=== PATIENT | male | born 1985 | race Caucasian/White ===

== ENCOUNTER 2024-02-07 13:12 | Emergency (ER) | payer OTHER ==
--- NOTE | 2024-02-07 14:28 | ERPHSYRPT ---
- History of Present Illness Time Seen by Provider: 02/07/24 14:15 Historian: patient, family (mother) Exam Limitations: no limitations Patient Subjective Stated Complaint: C/O vomiting that started approx 30 minutes prior to patient coming into the ER. Denies pain. Triage Nursing Assessment: Patient brought back to ER in a W/C. He is alert and oriented but anxious and hyperventilating. AQUINO WNL. Diaphoretic. Patient retching a few times during assessment with no vomitus; "dry heaving". Patient told to slow his breathing. Physician History: Pt states about 105 minutes ago he started with nausea & vomiting 6 times; about 20 minutes ago pt developed generalized abdominal cramping about 7/10 in severity. LBM was early this morning & wnl. Pt denies chest pain and shortness of air. Allergies/Adverse Reactions: No Known Drug Allergies Allergy (Verified 02/07/24 13:22) Home Medications: Amoxicillin/Potassium Clav [Amox-Clav 875-125 mg Tablet] 1 tab PO BID 02/07/24 [History] Ferrous Sulfate 325 mg [Feosol 325 mg] 325 mg PO DAILY 02/07/24 [History] Omeprazole 20 mg PO DAILY 02/07/24 [History] Hx Tetanus, Diphtheria Vaccination/Date Given: Yes Immunizations Up to Date: Yes Travel Risk - International Travel Have you traveled outside of the country in past 3 weeks: No - Emerging Infectious Disease Are you exhibiting symptoms associated with any current EIDs: Yes Symptoms: Vomitting - Review of Systems Respiratory: No Dyspnea Cardiac: No Chest Pain Abdominal/Gastrointestinal: Abdominal Pain, Nausea, Vomiting, No Diarrhea Neurological: No Headache - Past Medical History Pertinent Past Medical History: Yes Cardiac History: Hypertension Musculoskeletal History: Other GI Medical History: GERD, Hernia, Polyps Other Medical History: Raynauds, Anemia - Past Surgical History Past Surgical History: Yes Other Surgical History: carpal tunnel surgery, polyps removed - Social History Smoking Status: Never smoker Exposure to second hand smoke: No Drug Use: none - Social Determinants of Health Will the patient participate in the screening: Declined to provide - Nursing Vital Signs Nursing Vital Signs: Initial Vital Signs Temperature 98 F 02/07/24 13:25 Pulse Rate 90 02/07/24 13:25 Respiratory Rate 24 02/07/24 13:25 Blood Pressure 143/84 02/07/24 13:25 O2 Sat by Pulse Oximetry 99 02/07/24 13:25 Pain Scale Pain Intensity 0 - Physical Exam General Appearance: alert Eye Exam: eyes nml inspection Ears, Nose, Throat Exam: TMs normal, pharyngeal erythema Neck Exam: normal inspection Respiratory Exam: lungs clear, airway intact Cardiovascular Exam: normal heart sounds Gastrointestinal/Abdomen Exam: No normal bowel sounds (B.S. mildly hyperactive & normotonic) Extremity Exam: No pedal edema Neurologic Exam: alert, cooperative Skin Exam: normal color, warm SpO2 Interpretation: normal SpO2: 99 O2 Delivery: Room Air - Course Nursing assessment & vital signs reviewed: Yes - CT Exams Abdomen/Pelvis CT Interpretation: Tele-radiologist Report (Mid-abdomen mesenteric panniculitis was noted. Small sliding hiatus hernia. Umbilical hernia passing omental fat.) Ordered Tests: Active Orders 24 hr Category Date Time Status IV Insertion STAT Care 02/07/24 14:29 Active Telemetry q4h Care 02/07/24 17:46 Active ABDOMEN AND PELVIS W/0 CONTRAS [CT] Stat Exams 02/07/24 14:30 Completed AMYLASE Stat Lab 02/07/24 14:30 Completed CBC W DIFF Stat Lab 02/07/24 14:30 Completed CMP Stat Lab 02/07/24 14:30 Completed LIPASE Stat Lab 02/07/24 14:30 Completed MAGNESIUM Stat Lab 02/07/24 14:30 Completed UA W/RFX UR CULTURE Stat Lab 02/07/24 15:17 Completed Medication Summary Generic Name Dose Route Start Last Admin Trade Name Freq PRN Reason Stop Dose Admin Sodium Chloride 500 mls @ 50 mls/hr 02/07/24 18:00 02/07/24 18:07 Sodium Chloride 0.9% 500 Ml IV 03/08/24 17:59 50 mls/hr .Q10H VICTOR MANUEL Administration Discontinued Medications Generic Name Dose Route Start Last Admin Trade Name Freq PRN Reason Stop Dose Admin Sodium Chloride 1,000 mls @ 999 mls/hr 02/07/24 14:29 02/07/24 15:46 Sodium Chloride 0.9% 1000 Ml IV 02/07/24 15:29 Infused .Q1H1M STA Infusion Sodium Chloride Confirm 02/07/24 14:34 Sodium Chloride 0.9% 1000 Ml Administered 02/07/24 14:35 Dose 1,000 mls @ ud .ROUTE .STK-MED ONE Potassium Chloride 20 meq in 100 mls @ 50 mls/hr 02/07/24 17:45 02/07/24 18:07 Potassium Chloride 20 Meq In Water 100ml IV 02/07/24 19:44 50 mls/hr STAT ONE Administration Potassium Chloride Confirm 02/07/24 18:00 Potassium Chloride 20 Meq In Water 100ml Administered 02/07/24 18:01 Dose 100 mls @ ud IV .STK-MED ONE Morphine Sulfate 2 mg 02/07/24 14:29 02/07/24 14:44 Morphine Sulfate 2 Mg/Ml Inj IV 02/07/24 14:30 2 mg STAT ONE Administration Morphine Sulfate Confirm 02/07/24 14:34 Morphine Sulfate 2 Mg/Ml Inj Administered 02/07/24 14:35 Dose 2 mg .ROUTE .STK-MED ONE Morphine Sulfate 2 mg 02/07/24 17:59 Morphine Sulfate 2 Mg/Ml Inj IV 02/07/24 18:00 STAT ONE Ondansetron HCl 4 mg 02/07/24 14:29 02/07/24 14:41 Ondansetron Hcl 4 Mg/2 Ml Vial IV 02/07/24 14:30 4 mg STAT ONE Administration Ondansetron HCl Confirm 02/07/24 14:34 Ondansetron Hcl 4 Mg/2 Ml Vial Administered 02/07/24 14:35 Dose 4 mg .ROUTE .STK-MED ONE Lab/Rad Data: Laboratory Result Diagrams 02/07/24 14:30 02/07/24 14:30 Laboratory Results 02/07/24 02/07/24 02/07/24 Range/Units 15:17 15:15 15:15 WBC (4.23-9.07) x10^3/uL RBC (4.63-6.08) x10^6/uL Hgb (13.7-17.5) g/dL Hct (40.1-51.0) % MCV (79.0-92.2) fL MCH (25.7-32.2) pg MCHC (32.3-36.5) g/dL RDW (11.6-14.4) % Plt Count (163-337) x10^3/uL MPV (9.4-12.4) fL Gran % (34.0-67.9) % Immature Gran % (Auto) (0.001-0.429) % Nucleat RBC Rel Count (0.00-0.2) % Eos # (Auto) (0.04-0.54) x10^3/uL Immature Gran # (Auto) (0.001-0.031) x10^3u/L Absolute Lymphs (auto) (1.32-3.57) x10^3/uL Absolute Monos (auto) (0.30-0.82) x10^3/uL Absolute Nucleated RBC (0.00-0.012) x10^3u/L Lymphocytes % (21.8-53.1) % Monocytes % (5.3-12.2) % Eosinophils % (0.8-7.0) % Basophils % (0.2-1.2) % Absolute Granulocytes (1.78-5.38) x10^3/uL Basophils # (0.01-0.08) x10^3/uL Sodium (135-145) mmol/L Potassium (3.5-5.1) mmol/L Chloride (98-107) mmol/L Carbon Dioxide (22-30) mmol/L Anion Gap (5-15) MEQ/L BUN (9-20) mg/dL Creatinine (0.66-1.25) mg/dL Estimated GFR ML/MIN Glucose (74-106) mg/dL Calcium (8.4-10.2) mg/dL Magnesium (1.6-2.3) mg/dL Total Bilirubin (0.2-1.3) mg/dL AST (17-59) U/L ALT (0-50) U/L Alkaline Phosphatase (38-126) U/L Serum Total Protein (6.3-8.2) g/dL Albumin (3.5-5.0) g/dL Amylase (30-110) U/L Lipase (23-300) U/L Urine Color Yellow (Yellow) Urine Appearance Clear (Clear) Urine pH 8.0 (4.6-8.0) Ur Specific [place] 1.015 (1.005-1.030) Urine Protein Trace A (Negative) Urine Glucose (UA) Negative (Negative) mg/dL Urine Ketones Negative (Negative) Urine Blood Negative (Negative) Urine Nitrite Negative (Negative) Urine Bilirubin Negative (Negative) Urine Urobilinogen 0.2 (0.2) mg/dL Ur Leukocyte Esterase Negative (Negative) U Hyaline Cast (Auto) NONE SEEN (0-2) /LPF Urine Microscopic RBC 0-2 (0-5) /HPF Urine Microscopic WBC 3-5 (0-5) /HPF Ur Epithelial Cells None Seen (None Seen) /HPF Urine Bacteria None Seen (None Seen) /HPF Urine Culture Reflexed NO (NO) Influenza Type A Ag NEGATIVE (NEGATIVE) Influenza Type B Ag NEGATIVE (NEGATIVE) RSV (PCR) NEGATIVE (NEGATIVE) SARS-CoV-2 (PCR) NEGATIVE (NEGATIVE) Group A Strep Antibody NOT DETECTED (NEGATIVE) 02/07/24 02/07/24 02/07/24 Range/Units 14:30 14:30 14:30 WBC 17.2 H (4.23-9.07) x10^3/uL RBC 4.70 (4.63-6.08) x10^6/uL Hgb 13.1 L (13.7-17.5) g/dL Hct 39.9 L (40.1-51.0) % MCV 84.9 (79.0-92.2) fL MCH 27.9 (25.7-32.2) pg MCHC 32.8 (32.3-36.5) g/dL RDW 13.3 (11.6-14.4) % Plt Count 254 (163-337) x10^3/uL MPV 10.9 (9.4-12.4) fL Gran % 79.3 H (34.0-67.9) % Immature Gran % (Auto) 0.9 H (0.001-0.429) % Nucleat RBC Rel Count 0.0 (0.00-0.2) % Eos # (Auto) 0.21 (0.04-0.54) x10^3/uL Immature Gran # (Auto) 0.16 H (0.001-0.031) x10^3u/L Absolute Lymphs (auto) 2.18 (1.32-3.57) x10^3/uL Absolute Monos (auto) 0.92 H (0.30-0.82) x10^3/uL Absolute Nucleated RBC 0.00 (0.00-0.012) x10^3u/L Lymphocytes % 12.7 L (21.8-53.1) % Monocytes % 5.3 (5.3-12.2) % Eosinophils % 1.2 (0.8-7.0) % Basophils % 0.6 (0.2-1.2) % Absolute Granulocytes 13.63 H (1.78-5.38) x10^3/uL Basophils # 0.11 H (0.01-0.08) x10^3/uL Sodium 141 (135-145) mmol/L Potassium 3.0 L* (3.5-5.1) mmol/L Chloride 103 (98-107) mmol/L Carbon Dioxide 19 L (22-30) mmol/L Anion Gap 23.1 H (5-15) MEQ/L BUN 13 (9-20) mg/dL Creatinine 0.99 (0.66-1.25) mg/dL Estimated GFR 99.4 ML/MIN Glucose 163 H (74-106) mg/dL Calcium 9.5 (8.4-10.2) mg/dL Magnesium 1.7 (1.6-2.3) mg/dL Total Bilirubin 0.40 (0.2-1.3) mg/dL AST 40 (17-59) U/L ALT 42 (0-50) U/L Alkaline Phosphatase 57 (38-126) U/L Serum Total Protein 8.8 H (6.3-8.2) g/dL Albumin 5.0 (3.5-5.0) g/dL Amylase 63 (30-110) U/L Lipase 111 (23-300) U/L Urine Color (Yellow) Urine Appearance (Clear) Urine pH (4.6-8.0) Ur Specific [place] (1.005-1.030) Urine Protein (Negative) Urine Glucose (UA) (Negative) mg/dL Urine Ketones (Negative) Urine Blood (Negative) Urine Nitrite (Negative) Urine Bilirubin (Negative) Urine Urobilinogen (0.2) mg/dL Ur Leukocyte Esterase (Negative) U Hyaline Cast (Auto) (0-2) /LPF Urine Microscopic RBC (0-5) /HPF Urine Microscopic WBC (0-5) /HPF Ur Epithelial Cells (None Seen) /HPF Urine Bacteria (None Seen) /HPF Urine Culture Reflexed (NO) Influenza Type A Ag (NEGATIVE) Influenza Type B Ag (NEGATIVE) RSV (PCR) (NEGATIVE) SARS-CoV-2 (PCR) (NEGATIVE) Group A Strep Antibody (NEGATIVE) - Progress Progress: unchanged Discussed with Dr.: Other (Spoke with & discussed case with Dr. Rocha who instructed me to transfer pt to a hospital with preventive medicine officer availability. Spoke with & discussed case with Dr. Cintron([id number]) who accepted pt for transfer to [facility] as a direct admission.) Counseled pt/family regarding: lab results, diagnosis, rad results Medical Desision Making - Diagnostic Testing Diagnostic test were ordered, analyzed, and reviewed by me: Yes Radiological Interpretation: Teleradiologist Report - Departure Departure Disposition: Transfer ([facility]) Clinical Impression: Abdominal pain, Vomiting, Mesenteric panniculitis, Leukocytosis Condition: Stable Critical Care Time: No
[2024-02-07] MEDS ORDERED: Sodium Chloride 0.9% 1000 ML 1,000 ML ONE (14:34)
[2024-02-07] MEDS ORDERED: Zofran 4 MG/2 ML VIAL ONE (14:34)
[2024-02-07] MEDS ORDERED: MORPHINE SULFATE 2 MG INJ ONE (14:34)
[2024-02-07 14:36] LABS: Absolute Neutrophil Ct (ANC) 13.63 x10^3/uL (1.78-5.38); BASOPHIL % 0.6 % (0.2-1.2); Basophil (Absolute #) 0.11 x10^3/uL (0.01-0.08); Eosinophil % 1.2 % (0.8-7.0); Eosinophil (Absolute #) 0.21 x10^3/uL (0.04-0.54); Hematocrit 39.9 % (40.1-51.0); Hemoglobin 13.1 g/dL (13.7-17.5); IMMATURE GRAN # 0.16 x10^3u/L (0.001-0.031); IMMATURE GRAN % 0.9 % (0.001-0.429); Lymphocyte (Absolute #) 2.18 x10^3/uL (1.32-3.57); Lymphocytes % 12.7 % (21.8-53.1); Mean Cell Volume 84.9 fL (79.0-92.2); Mean Corpuscular Hemoglobin 27.9 pg (25.7-32.2); Mean Corpuscular Hgb Concent. 32.8 g/dL (32.3-36.5); Mean Platelet Volume 10.9 fL (9.4-12.4); Monocyte (Absolute #) 0.92 x10^3/uL (0.30-0.82); Monocytes % 5.3 % (5.3-12.2); Neutrophil % 79.3 % (34.0-67.9); Platelet Count 254 x10^3/uL (163-337); Red Cell Distribution Width 13.3 % (11.6-14.4); White Blood Count 17.2 x10^3/uL (4.23-9.07)
[2024-02-07] MEDS: Sodium Chloride 0.9% 1000 ML 1,000 ML IV STA (14:39)
[2024-02-07 14:41] LABS: ANION GAP 23.1 MEQ/L (5-15); BILIRUBIN,TOTAL 0.4 mg/dL (0.2-1.3); Calcium 9.5 mg/dL (8.4-10.2); Creatinine 1 0.99 mg/dL (0.66-1.25); EST GLOMERULAR FILTRATION RATE 99.4 ML/MIN; Total Protein 8.8 g/dL (6.3-8.2)
[2024-02-07] MEDS: Zofran 4 MG/2 ML VIAL IV ONE (14:41)
[2024-02-07] MEDS: MORPHINE SULFATE 2 MG INJ IV ONE (14:44)
[2024-02-07 15:28] LABS: Appearance Clear (Clear); Bacteria None Seen /HPF (None Seen); Bilirubin Negative (Negative); Blood Negative (Negative); Epithelial Cells None Seen /HPF (None Seen); Glucose, Urine Negative (Negative); Hyaline Casts NONE SEEN /LPF (0-2); Ketones Negative (Negative); Leukocyte Esterase Negative (Negative); Nitrite Negative (Negative); Protein,Urine Dip Trace (Negative); RBC 0-2 /HPF (0-5); Specific Gravity 1.015 (1.005-1.030); Urobilinogen 0.2 mg/dL (0.2)
[2024-02-07 16:00] LABS: INFLUENZA A NEGATIVE (NEGATIVE); INFLUENZA B NEGATIVE (NEGATIVE); RESPIRATORY SYNCTIAL VIRUS NEGATIVE (NEGATIVE); SARS-CoV-2 Xpert Express NEGATIVE (NEGATIVE)
--- NOTE | 2024-02-07 16:44 | XRAY ---
CLINICAL HISTORY: pain/vomiting COMPARISON: No prior studies are available for comparison. TECHNIQUE: Non-contrast CT of the abdomen and pelvis was performed, with the following protocol: axial images, and reconstructed coronal and sagittal images. One of the following dose reduction techniques was utilized for this exam: Automated exposure control, adjustment of the mA and/or kV according to patient size, and use of iterative reconstruction. FINDINGS: Lower lung cuts: Bilateral posterior basal pulmonary calcified nodule. Small sliding hiatal significant. Abdomen: Liver: Normal in size, shape, and density. No focal lesions, cysts, or masses were identified. Gallbladder and Biliary System: The gallbladder is normal in size and shape. No wall thickening, pericholecystic fluid, or gallstones were identified. Pancreas: Pancreatic head, body, and tail are visualized and appear normal in size and density. No pancreatic masses or calcifications were noted. Spleen: Normal in size, shape, and density. No splenic lesions or masses were identified. Kidneys and Adrenal Glands: Both kidneys are normal in size, shape, and position. Cortical thickness is within normal limits. No renal calculi or hydronephrosis. Adrenal glands are unremarkable. Abdominal Aorta and Vessels: The abdominal aorta and major branches are patent without evidence of an aneurysm or significant atherosclerosis. Pelvis: Urinary Bladder: Normal in contour and wall thickness. No intraluminal lesions. Prostate: Normal in size and contour. No masses or abnormal thickening. Seminal Vesicles: Normal appearance without abnormal enlargement or mass. Peritoneal and Retroperitoneal Structures: Mid-abdomen mesenteric panniculitis were noted. Umbilical hernia passing omental fat. No free fluid or abnormal fluid collections were identified within the abdomen or pelvis. No lymphadenopathy was noted. Bowel: Small sliding hiatus hernia. The visualized bowel loops are normal in caliber and appearance. Normal size, wall thickness and caliber of the appendix. no signs of appendicitis. No evidence of bowel obstruction or wall thickening. Bones and Soft Tissues: Pelvic bones and soft tissues are unremarkable. No fractures or abnormal masses were identified. Mild degenerative change of the spines IMPRESSION: 1. Mid-abdomen mesenteric panniculitis was noted. 2. Small sliding hiatus hernia. 3. Umbilical hernia passing omental fat. Electronically Signed by: Pinky Restrepo MD. (02/07/2024 16:40:37 EST)
[2024-02-07] MEDS ORDERED: MORPHINE SULFATE 2 MG INJ IV ONE (17:59)
[2024-02-07] MEDS ORDERED: POTASSIUM CHLORIDE 20 mEq IN WATER 100ML 100 ML IV ONE (18:00)
[2024-02-07] MEDS ORDERED: Sodium Chloride 0.9% 500 ML 500 ML IV ONE (18:00)
[2024-02-07] MEDS: POTASSIUM CHLORIDE 20 mEq IN WATER 100ML 20 MEQ/100 ML BAG IV ONE (18:07)
[2024-02-07] MEDS: Sodium Chloride 0.9% 500 ML 500 ML IV SCH (18:07)
[2024-02-08] MEDS ORDERED: Sodium Chloride 0.9% 1000 ML 0 ML ONE (00:09)
[2024-02-08 00:10] VITALS: TEMP 98.3
[2024-02-08] MEDS ORDERED: Sodium Chloride 0.9% 500 ML 500 ML IV ONE (00:11)
[2024-02-08 01:07] VITALS: BP 136/76; PULSE 83; RESP 19; O2SAT 94
== END 2024-02-08 01:46 | disposition short-term general hospital (02) ==
LOC: ED 13:12
DX: R11.2 Nausea with vomiting, unspecified (principal); R10.84 Generalized abdominal pain; D72.829 Elevated white blood cell count, unspecified; K65.4 Sclerosing mesenteritis
CPT/HCPCS: 0241U; 36415; 74176; 80053; 81001; 82150; 83690; 83735; 85025; 87651; 96360; 96374; 96375; 99285; J2270; J2405; J3480